=== PATIENT | female | born 1960 | race Caucasian/White ===

== ENCOUNTER → 2016-09-06 14:36 | Outpatient (CLI) | payer BC | END | disposition home or self-care (01) | LOC: D.MAMMO 10:00 | DX: Z12.31 Encounter for screening mammogram for malignant neoplasm of breast (principal) ==

== ENCOUNTER 2018-03-23 10:22 | Emergency (ER) | payer BC ==
[~2018-03-23] VITALS: Ht 167.6 cm; Wt 57.7 kg
[2018-03-23 10:28] VITALS: Ht 167.6 cm; Wt 57.7 kg
[2018-03-23 12:09] LABS: INR 1.06 (0.85-1.17); PROTIME 13.2 SECONDS (11.6-15.0)
[2018-03-23 12:10] LABS: D-DIMER-QUANTITATIVE 0.27 ug/mLFEU (0.20-0.54)
[2018-03-23 12:12] LABS: BASOPHILS 0.2 % (0-2); EOSINOPHILS 0.5 % (0-7); HEMATOCRIT 40.2 % (36.0-48.0); HEMOGLOBIN 13.6 g/dL (12-16); IMMATURE GRANULOCYTES 0.3 % (0-5); LYMPHOCYTES 15.8 % (15-50); MCH 30.1 pg (26.0-34.0); MCHC 33.8 g/dL (31.0-37.0); MCV 88.9 fL (80.0-100.0); MEAN PLATELET VOLUME 11.3 fL (7.4-10.4); MONOCYTES 2.3 % (2-11); NEUTROPHILS 80.9 % (40-80); PLATELET COUNT 177 10x3/uL (130-400); RBC 4.52 10x6/uL (4.00-5.40)
[2018-03-23 12:16] LABS: ALKALINE PHOSPHATASE 79 U/L (46-116); ALT (SGPT) 32 U/L (10-68); BILIRUBIN - TOTAL 0.62 mg/dL (0.2-1.3); C-REACTIVE PROTEIN < 0.2 mg/dL (0.0-0.9); CALC OSMOLALITY 280 mosm/kg (275-300); CALCIUM 8.6 mg/dL (8.5-10.1); CARBON DIOXIDE 21.7 mmol/L (21.0-32.0); CHLORIDE - SERUM 105 mmol/L (98-107); CKMB 4.2 U/L (0.0-3.6); CREATININE - SERUM 0.7 mg/dL (0.6-1.3); GLUCOSE 115 mg/dL (74-106); POTASSIUM - SERUM 4.2 mmol/L (3.5-5.1); PROTEIN - SERUM 7.4 g/dL (6.4-8.2); SODIUM 140 mmol/L (136-145); TROPONIN-I < 0.017 ng/mL (0.000-0.060); UREA NITROGEN 15 mg/dL (7-18); eGFR NON AFRICAN AMERICAN > 90 mL/min (90-120)
[2018-03-23] MEDS ORDERED: TYLENOL W/CODEI1 TAB PO (14:23)
[2018-03-23] MEDS ORDERED: ZOFRAN4 MG PO (14:23)
[2018-03-23 14:36] VITALS: BP 114/82
== END 2018-03-23 14:39 | disposition home or self-care (01) ==
LOC: D.ER 10:22
PROVIDERS: Emergency Medicine
DX: G43.909 Migraine, unspecified, not intractable, without status migrainosus (principal); H57.11 Ocular pain, right eye

== ENCOUNTER → 2019-01-28 11:30 | Outpatient (CLI) | payer BC ==
[2018-03-23 10:28] VITALS: BMI 20.5
[~2019-01-28 11:30] MED LIST: TYLENOL W/CODEI1 TAB PO; ZOFRAN4 MG PO
== END | disposition home or self-care (01) ==
LOC: D.MAMMO 11:30
PROVIDERS: ATTEND Nurse Practitioner Family
DX: Z12.31 Encounter for screening mammogram for malignant neoplasm of breast (principal)